=== PATIENT | male | born 1965 | race Caucasian/White ===

== ENCOUNTER → 2020-06-03 | Outpatient (CLI) | payer OTHER | LOC: WOUNDCARE 13:44 | PROVIDERS: ATTEND Surgery | DX: I96 Gangrene, not elsewhere classified (principal); T23.231A Burn of second degree of multiple right fingers (nail), not including thumb, initial encounter; T23.251A Burn of second degree of right palm, initial encounter; T65.222A Toxic effect of tobacco cigarettes, intentional self-harm, initial encounter; F17.218 Nicotine dependence, cigarettes, with other nicotine-induced disorders | CPT/HCPCS: 16020; G0463 ==

== ENCOUNTER → 2020-06-11 | Outpatient (CLI) | payer OTHER | LOC: WOUNDCARE 08:10 | PROVIDERS: ATTEND Surgery | DX: I96 Gangrene, not elsewhere classified (principal); T23.231A Burn of second degree of multiple right fingers (nail), not including thumb, initial encounter; T23.251A Burn of second degree of right palm, initial encounter; T65.222A Toxic effect of tobacco cigarettes, intentional self-harm, initial encounter; F17.218 Nicotine dependence, cigarettes, with other nicotine-induced disorders | CPT/HCPCS: 99214 ==